=== PATIENT | male | born 1975 | race African-American/Black ===

== ENCOUNTER 2018-01-22 08:18 | Emergency (ER) | payer OTHER ==
[2018-01-22 08:25] VITALS: BP 151/101
[2018-01-22] MEDS ORDERED: METOCLOPRAMIDE HCL ORAL SOLN 10 MG/10 ML UDCUP PO ONE (09:19)
[2018-01-22] MEDS ORDERED: MAG HYDROX/AL HYDROX/SIMETH SUSP 30 ML UDCUP PO ONE (09:19)
[2018-01-22] MEDS ORDERED: LIDOCAINE 2% VISCOUS SOLN 20 ML UDCUP PO ONE (09:19)
--- NOTE | 2018-01-22 09:23 | ER Document Report ---
ED Medical Screen (RME) - General Chief Complaint: Painful Cough Stated Complaint: THROAT PAIN Time Seen by Provider: 01/22/18 09:13 Mode of Arrival: Ambulatory Information source: Patient Notes: 42-year-old man presents with foreign body sensation in his throat since last night. Patient states he was coughing and gagging and had some blood tinged sputum. Patient states he was usual state of health until approximately 11 PM last night when he was having some drinks with a friend (liquor with ice cubes) and he felt a sensation in his throat. Patient denies having dinner prior to or having any food with the alcohol. He does state that it was burning in his throat. He states he did experience some heart racing and shortness of breath at that time thinks he may have been anxious with the symptoms. He states this morning he still feels like he has a sensation in his throat with coughing and gagging. He denies any further shortness of breath or palpitations at this time. He denies chest pain. He is able to swallow. He is not drooling. Past medical history: Hypertension, dyslipidemia. Past surgical history: None Allergies: none cigarettes: One pack per day TRAVEL OUTSIDE OF THE [place] IN LAST 30 DAYS: No - Related Data Allergies/Adverse Reactions: No Known Allergies Allergy (Verified 05/09/16 11:56) Past Medical History - Social History Chew tobacco use (# tins/day): No Frequency of alcohol use: None Drug Abuse: None - Past Medical History Cardiac Medical History: Reports: Hx Hypercholesterolemia, Hx Hypertension Renal/ Medical History: Denies: Hx Peritoneal Dialysis Musculoskeltal Medical History: Reports Hx Musculoskeletal Trauma - Immunizations Hx Diphtheria, Pertussis, Tetanus Vaccination: Yes Physical Exam - Vital signs Vitals: Temp Pulse Resp BP Pulse Ox 97.4 F 77 18 151/101 H 98 01/22/18 08:24 01/22/18 08:24 01/22/18 08:24 01/22/18 08:24 01/22/18 08:24 Course - Vital Signs Vital signs: Temp Pulse Resp BP Pulse Ox 97.4 F 77 18 151/101 H 98 01/22/18 08:24 01/22/18 08:24 01/22/18 08:24 01/22/18 08:24 01/22/18 08:24
--- NOTE | 2018-01-22 09:24 | RADIOLOGY REPORT (SQ) ---
EXAM DESCRIPTION: CHEST 2 VIEWS COMPLETED DATE/TIME: 01/22/2018 9:15 am REASON FOR STUDY: coughing up blood COMPARISON: None. TECHNIQUE: Frontal and lateral radiographic views of the chest acquired. NUMBER OF VIEWS: Two view. LIMITATIONS: None. FINDINGS: LUNGS AND PLEURA: No opacities, masses or pneumothorax. No pleural effusion. MEDIASTINUM AND HILAR STRUCTURES: No masses or contour abnormalities. HEART AND VASCULAR STRUCTURES: Heart normal size. No evidence for failure. BONES: No acute findings. HARDWARE: None in the chest. OTHER: No other significant finding. IMPRESSION: NO SIGNIFICANT RADIOGRAPHIC FINDING IN THE CHEST. TECHNICAL DOCUMENTATION: JOB ID: [id number] [id number]- All Rights Reserved Reading location - IP/workstation name: [email or web address]
[2018-01-22 09:56] LABS: ABSOLUTE EOSINOPHILS # (AUTO) 0.1 10^3/uL (0.0-0.6); ABSOLUTE LYMPHOCYTES (AUTO) 2.5 10^3/uL (0.5-4.7); ABSOLUTE MONOCYTES (AUTO) 0.6 10^3/uL (0.1-1.4); ABSOLUTE NEUT (AUTO) 3.3 10^3/uL (1.7-8.2); BASOPHILS % (AUTO) 0.7 % (0-2); HEMATOCRIT 45.7 % (37.9-51.0); HEMOGLOBIN 15.4 g/dL (13.5-17.0); LYMPHOCYTES % (AUTO) 38.3 % (13-45); MEAN CORPUSCULAR HEMOGLOBIN 28.5 pg (27.0-33.4); MEAN CORPUSCULAR HGB CONC 33.8 g/dL (32.0-36.0); MEAN CORPUSCULAR VOLUME 84 fl (80-97); MONOCYTES % (AUTO) 8.7 % (3-13); PLATELET COUNT 247 10^3/uL (150-450); RED BLOOD COUNT 5.42 10^6/uL (4.35-5.55); RED CELL DISTRIBUTION WIDTH 13.3 % (11.5-14.0); SEGMENTED NEUTROPHILS % (AUTO) 50.3 % (42-78); TOTAL CELLS COUNTED % (AUTO) 100 %; WHITE BLOOD COUNT 6.6 10^3/uL (4.0-10.5)
--- NOTE | 2018-01-22 09:59 | RADIOLOGY REPORT (SQ) ---
EXAM DESCRIPTION: SOFT TISSUE NECK COMPLETED DATE/TIME: 01/22/2018 9:43 am REASON FOR STUDY: throat fb sensation COMPARISON: None. NUMBER OF VIEWS: Two views. TECHNIQUE: AP and lateral radiographic image of the soft tissues of the neck. LIMITATIONS: None. FINDINGS: EPIGLOTTIS: Normal. Contour normal. Aryepiglottic folds normal. PREVERTEBRAL SOFT TISSUES: Normal. No soft tissue swelling. SUBGLOTTIC AREA: Normal. No narrowing. RETROPHARYNGEAL SPACE: Normal. No soft tissue masses. BONES: Mild cervical spondylosis with anterior spurring at C5-6. LUNG APICES: Normal. OTHER: No radiopaque foreign body. No other significant finding. IMPRESSION: No soft tissue pathology in the neck. TECHNICAL DOCUMENTATION: JOB ID: [id number] [employer]- All Rights Reserved Reading location - IP/workstation name: [email or web address]
[2018-01-22] MEDS ORDERED: FAMOTIDINE 20 MG TABLET PO ONE (10:18)
[2018-01-22 10:20] LABS: ALANINE AMINOTRANSFERASE 51 U/L (21-72); ALBUMIN 4.2 g/dL (3.5-5.0); ALKALINE PHOSPHATASE 63 U/L (38-126); ANION GAP 13 (5-19); ASPARTATE AMINO TRANSFERASE 39 U/L (17-59); BILIRUBIN,DIRECT 0.3 mg/dL (0.0-0.4); BILIRUBIN,TOTAL 0.4 mg/dL (0.2-1.3); BLOOD UREA NITROGEN 7 mg/dL (7-20); CALCIUM 9.5 mg/dL (8.4-10.2); CARBON DIOXIDE 25 mmol/L (22-30); CHLORIDE 105 mmol/L (98-107); CREATINE KINASE 1030 U/L (55-170); GLUCOSE 99 mg/dL (75-110); POTASSIUM 4.1 mmol/L (3.6-5.0); TOTAL PROTEIN 7.7 g/dL (6.3-8.2)
--- NOTE | 2018-01-22 10:20 | ER Document Report ---
ED General - General Chief Complaint: Painful Cough Stated Complaint: THROAT PAIN Time Seen by Provider: 01/22/18 09:13 Mode of Arrival: Ambulatory Notes: 42-year-old male to the emergency department complaining of difficulty swallowing. States that he was drinking some water last night. [place] like he swallowed something. May be a bug. Since that time he has been feeling like he needs to throw up. Has had several episodes directed vomiting. Had some blood in the vomit this morning. Came in today to be evaluated to see if he has something stuck in his throat. Has not tried to eat or drink anything. States he has to go to work your real since he needs to get out of here really quickly. Denies any chest pain, shortness of breath, weakness, dizziness or other symptoms at this time to myself. TRAVEL OUTSIDE OF THE [place] IN LAST 30 DAYS: No - HPI Onset: This evening Onset/Duration: Sudden Severity: Moderate Pain Level: 0 - Related Data Allergies/Adverse Reactions: No Known Allergies Allergy (Verified 05/09/16 11:56) Past Medical History - General Information source: Patient - Social History Smoking Status: Current Every Day Smoker Cigarette use (# per day): Yes Chew tobacco use (# tins/day): No Frequency of alcohol use: None Drug Abuse: None Lives with: Family Family History: Arthritis, CAD, CVA, DM, Hyperlipidemia, Hypertension, Malignancy. denies: COPD, Thyroid Disfunction Patient has suicidal ideation: No Patient has homicidal ideation: No - Past Medical History Cardiac Medical History: Reports: Hx Hypercholesterolemia, Hx Hypertension Renal/ Medical History: Denies: Hx Peritoneal Dialysis Musculoskeletal Medical History: Reports Hx Musculoskeletal Trauma - Immunizations Hx Diphtheria, Pertussis, Tetanus Vaccination: Yes Review of Systems - Review of Systems Constitutional: denies: Fever, Malaise, Weakness EENT: denies: Eye pain, Ear pain, Throat pain, Difficulty swallowing, Throat swelling, Mouth pain Cardiovascular: denies: Chest pain, Palpitations, Heart racing Respiratory: denies: Cough, Hurts to breathe, Short of breath, Wheezing Gastrointestinal: Vomiting, Other - Mild hematemesis. denies: Abdominal pain, Diarrhea, Nausea Musculoskeletal: Leg swelling. denies: Back pain, Muscle pain, Neck pain Neurological/Psychological: denies: Confusion, Weakness, Numbness Physical Exam - Vital signs Vitals: Temp Pulse Resp BP Pulse Ox 97.4 F 77 18 151/101 H 98 01/22/18 08:24 01/22/18 08:24 01/22/18 08:24 01/22/18 08:24 01/22/18 08:24 Interpretation: Normal - General General appearance: Appears well, Alert - HEENT Head: Normocephalic, Atraumatic Eyes: Normal Pupils: PERRL Pharynx: Normal Neck: Normal - Respiratory Respiratory status: No respiratory distress Chest status: Nontender Breath sounds: Normal Chest palpation: Normal - Cardiovascular Rhythm: Regular Heart sounds: Normal auscultation Murmur: No - Abdominal Inspection: Normal Distension: No distension Bowel sounds: Normal Tenderness: Nontender Organomegaly: No organomegaly - Back Back: Normal, Nontender - Extremities General upper extremity: Normal inspection, Nontender, Normal color, Normal ROM , Normal temperature General lower extremity: Normal inspection, Nontender, Normal color, Normal ROM , Normal temperature, Normal weight bearing. No: Martín's sign - Neurological Neuro grossly intact: Yes Cognition: Normal Orientation: AAOx4 [place] Coma Scale Eye Opening: Spontaneous [place]oc Coma Scale Verbal: Oriented [place]oc Coma Scale Motor: Obeys Commands [place] Coma Scale Total: 15 Speech: Normal Motor strength normal: LUE, RUE, LLE, RLE Sensory: Normal - Psychological Associated symptoms: Normal affect, Normal mood Course - Re-evaluation Re-evalutation: 01/22/18 10:40 Laboratory 01/22/18 01/22/18 01/22/18 09:25 09:25 09:25 WBC 6.6 RBC 5.42 Hgb 15.4 Hct 45.7 MCV 84 MCH 28.5 MCHC 33.8 RDW 13.3 Plt Count 247 Seg Neutrophils % 50.3 Lymphocytes % 38.3 Monocytes % 8.7 Eosinophils % 2.0 Basophils % 0.7 Absolute Neutrophils 3.3 Absolute Lymphocytes 2.5 Absolute Monocytes 0.6 Absolute Eosinophils 0.1 Absolute Basophils 0.0 Sodium 143.0 Potassium 4.1 Chloride 105 Carbon Dioxide 25 Anion Gap 13 BUN 7 Creatinine 0.83 Est GFR ( Amer) > 60 Est GFR (Non-Af Amer) > 60 Glucose 99 Calcium 9.5 Total Bilirubin 0.4 Direct Bilirubin 0.3 Neonat Total Bilirubin Not Reportable Neonat Direct Bilirubin Not Reportable Neonat Indirect Bili Not Reportable AST 39 ALT 51 Alkaline Phosphatase 63 Creatine Kinase 1030 H CK-MB (CK-2) 1.24 Troponin I < 0.012 Total Protein 7.7 Albumin 4.2 Chest X-Ray 01/22/18 00:00 IMPRESSION: NO SIGNIFICANT RADIOGRAPHIC FINDING IN THE CHEST. Soft Tissue Neck X-Ray 01/22/18 09:20 IMPRESSION: No soft tissue pathology in the neck. Patient is feeling much better at this time. GI cocktail helped. Was able to swallow a Pepcid and some john nicolette and crackers. Patient adamantly is leaving. At this time will DC. Very low risk in my opinion at this time for this being an anginal equivalent or other major issue. - Vital Signs Vital signs: Temp Pulse Resp BP Pulse Ox 97.4 F 77 18 151/101 H 98 01/22/18 08:24 01/22/18 08:24 01/22/18 08:24 01/22/18 08:24 01/22/18 08:24 - Laboratory Result Diagrams: 01/22/18 09:25 01/22/18 09:25 Laboratory results interpreted by me: 01/22/18 09:25 Creatine Kinase 1030 H - EKG Interpretation by [place] EKG shows normal: Sinus rhythm, [place], Intervals, QRS Complexes, ST-T Waves Discharge - Discharge Clinical Impression: Sensation of foreign body in esophagus Condition: Good Disposition: HOME, SELF-CARE Instructions: Esophageal Spasm ([facility]) Additional Instructions: In the event if symptoms persist or you begin to have no blood, worsening pain, chest pain, shortness of breath, dizziness or other concerns please return. If the symptoms of a foreign body in her throat sensation persist you may need an upper endoscopy. Follow-up information given for a surgeon that performs this procedure. Please call their office and schedule an appointment for consultation of the symptoms persist or return to the emergency department. Prescriptions: Ranitidine HCl [Zantac] 150 mg PO BID #14 tablet Forms: Return to Work Referrals: BERNADETTE ROMERO MD [Primary Care Provider] - Follow up as needed PATRICIA GABRIEL MD [ACTIVE STAFF] - Follow up in 3-5 days
[2018-01-22 10:29] LABS: CREATINE KINASE MB 1.24 ng/mL (<4.55)
[2018-01-22 10:30] LABS: TROPONIN I < 0.012 ng/mL
--- NOTE | 2018-01-23 03:02 | EKG REPORT ---
SEVERITY:- BORDERLINE ECG - SINUS RHYTHM BORDERLINE LEFT AXIS DEVIATION BORDERLINE T ABNORMALITIES, INFERIOR LEADS : Confirmed by: Bibiana Daley MD 23-Jan-2018 03:01:56
== END 2018-01-22 10:51 | disposition home or self-care (01) ==
LOC: ER 08:18
DX: R19.8 Other specified symptoms and signs involving the digestive system and abdomen (principal); R13.10 Dysphagia, unspecified; K92.0 Hematemesis; M79.89 Other specified soft tissue disorders; F17.210 Nicotine dependence, cigarettes, uncomplicated; I10 Essential (primary) hypertension
CPT/HCPCS: 93005; 99284; 36415; 82553; 82550; 85025; 80053; 84484; 71046; 70360; 93010; J3490

== ENCOUNTER 2019-09-28 17:09 | Emergency (ER) | payer OTHER ==
[2019-09-28] MEDS ORDERED: ASPIRIN 81 MG TABLET, CHEWABLE PO ONE (17:29)
--- NOTE | 2019-09-28 17:31 | ER Document Report ---
ED Medical Screen (RME) - General Chief Complaint: Arm Pain Stated Complaint: CHEST PAIN Time Seen by Provider: 09/28/19 17:23 Primary Care Provider: BERNADETTE ROMERO MD [Primary Care Provider] - Follow up as needed Mode of Arrival: Ambulatory Information source: Patient Notes: 43-year-old male presented to ED for complaint of pain down his left arm that comes and goes. He states he went over the [facility] and they sent him to the emergency room for chest pain. They states there were some abnormalities on the EKG. He is alert oriented respirations regular nonlabored speaking in full sentences. He states his past medical history is high blood pressure high cholesterol reflux. He states he does see a rugby union footballer for chronic foot pain. He states he also smokes 1/2 pack a day and drinks couple beers a day does not do any drugs. I have greeted and performed a rapid initial assessment of this patient. A comprehensive ED assessment and evaluation of the patient, analysis of test results and completion of medical decision making process will be conducted by an additional ED providers. TRAVEL OUTSIDE OF THE [place] IN LAST 30 DAYS: No - Related Data Allergies/Adverse Reactions: No Known Allergies Allergy (Verified 05/09/16 11:56) Past Medical History - Past Medical History Cardiac Medical History: Reports: Hx Hypercholesterolemia, Hx Hypertension Renal/ Medical History: Denies: Hx Peritoneal Dialysis Musculoskeltal Medical History: Reports Hx Musculoskeletal Trauma - Immunizations Hx Diphtheria, Pertussis, Tetanus Vaccination: Yes Physical Exam - Vital signs Vitals: Temp Pulse Resp BP Pulse Ox 98.5 F 91 16 166/104 H 97 09/28/19 17:21 09/28/19 17:21 09/28/19 17:21 09/28/19 17:21 09/28/19 17:21 Course - Vital Signs Vital signs: Temp Pulse Resp BP Pulse Ox 98.5 F 91 16 166/104 H 97 09/28/19 17:21 09/28/19 17:21 09/28/19 17:21 09/28/19 17:21 09/28/19 17:21 Doctor's Discharge - Discharge Referrals: BERNADETTE ROMERO MD [Primary Care Provider] - Follow up as needed
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
--- NOTE | 2019-09-28 17:51 | RADIOLOGY REPORT (SQ) ---
EXAM DESCRIPTION: CHEST 2 VIEWS IMAGES COMPLETED DATE/TIME: 09/28/2019 5:41 pm REASON FOR STUDY: pain down left arm COMPARISON: 01/22/2018 EXAM PARAMETERS: NUMBER OF VIEWS: two views TECHNIQUE: Digital Frontal and Lateral radiographic views of the chest acquired. RADIATION DOSE: NA LIMITATIONS: none FINDINGS: LUNGS AND PLEURA: No opacities, masses or pneumothorax. No pleural effusion. MEDIASTINUM AND HILAR STRUCTURES: No masses or contour abnormalities. HEART AND VASCULAR STRUCTURES: Heart normal size. No evidence for failure. BONES: No acute findings. HARDWARE: None in the chest. OTHER: No other significant finding. IMPRESSION: NO ACUTE RADIOGRAPHIC FINDING IN THE CHEST. TECHNICAL DOCUMENTATION: JOB ID: [id number] 2010 [employer]- All Rights Reserved Reading location - IP/workstation name: [email or web address]
[2019-09-28 18:50] VITALS: BP 167/102
--- NOTE | 2019-09-29 16:19 | EKG REPORT ---
SEVERITY:- OTHERWISE NORMAL ECG - SINUS RHYTHM BORDERLINE LEFT AXIS DEVIATION : Confirmed by: Fidel Granda 29-Sep-2019 16:18:59
== END 2019-09-28 18:50 | disposition home or self-care (01) ==
LOC: ER 17:09
DX: M54.12 Radiculopathy, cervical region (principal); I10 Essential (primary) hypertension
CPT/HCPCS: 36415; 71046; 84484; 93005; 93010; 99284